=== PATIENT | male | born 1995 | race Caucasian/White ===

== ENCOUNTER 2017-07-09 22:47 | Emergency (ER) | payer SELFPAY ==
[~2017-07-09] VITALS: Ht 182.9 cm; Wt 68.0 kg
[2017-07-09 23:05] VITALS: BP 149/77; PULSE 86; RESP 16; TEMP 97.8; O2SAT 99
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
[2017-07-09] MEDS ORDERED: IBUP-232 PO (23:34)
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
== END 2017-07-10 00:09 | disposition home or self-care (01) ==
LOC: NEPC 22:47
DX: S41.112A Laceration without foreign body of left upper arm, initial encounter (principal); S21.212A Laceration without foreign body of left back wall of thorax without penetration into thoracic cavity, initial encounter; X99.9XXA Assault by unspecified sharp object, initial encounter
CPT/HCPCS: 12001; 12032